=== PATIENT | female | born 1960 | race Caucasian/White ===

== ENCOUNTER 2020-01-22 16:21 | Inpatient (IN) | payer BC, OTHER ==
[2020-01-22 17:47] VITALS: BMI 22.2
[2020-01-22] MEDS ORDERED: Acetaminophen 325 MG TAB PO PRN (19:13)
[2020-01-22] MEDS ORDERED: Acetaminophen 650 MG Suppository PR PRN (19:13)
[2020-01-22] MEDS ORDERED: Chloraseptic Spray 180 ml Bottle PO PRN (19:45)
[2020-01-22] MEDS: D5 1/2 NS w/20 mEq KCL 1,000 ML IV SCH (20:07)
[2020-01-22] MEDS: Pantoprazole 40 MG VIAL IVP SCH (20:11)
--- NOTE | 2020-01-22 22:33 | HP ---
CHIEF COMPLAINT: Nausea and vomiting. HISTORY OF PRESENT ILLNESS: Ms. Gutierrez is a 59-year-old woman with a past history of endometrial cancer treated with surgery, radiation, and chemotherapy. The radiation therapy resulted in a colon stricture and she underwent a colectomy and colostomy with later takedown and reanastomosis and diverting ileostomy. Her ileostomy was taken down last year. She reported rather acute onset of overall malaise, had tightness in her abdomen and nausea. She had multiple episodes of vomiting and even after she emptied her stomach, she continued to vomit bile. She came to a local emergency room as her symptoms were not abating and a CT there showed a high-grade mechanical small bowel obstruction. She had an NG tube placed and received medication and is now feeling much better. She is no longer having any nausea and she denies any abdominal pain. She states that she never really had severe abdominal pain. She just felt discomfort and tightness in her abdomen. She has had some problems with intermittent discomfort and tightness, which has resolved over time and she has had some chronic constipation, which she treats with psyllium and stool softeners ever since her ileostomy reversal. She is otherwise healthy and very active. PAST MEDICAL HISTORY: Endometrial cancer and radiation-induced stricture of the colon. The patient also has a history of DVT in her left leg associated with the acute illness caused by the sigmoid stricture and obstruction. FAMILY HISTORY: Pancreatic cancer in her mother. 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 She does not smoke, drink, or use illicit drugs. OUTPATIENT MEDICATIONS: She takes baby aspirin twice a day due to her history of DVT. ALLERGIES: PENICILLIN CAUSES HIVES. PHYSICAL EXAMINATION: VITAL SIGNS: Temperature 98.4, heart rate 76, respirations 18, 98% saturated on room air, and blood pressure 122/69. GENERAL: Reveals a healthy-appearing woman, in no acute distress. She is not jaundiced or icteric. She is not flushed or toxic in appearance. HEENT: Unremarkable. NECK: Supple without lymphadenopathy or thyroid nodules. HEART: Regular in its rate and rhythm. She does have a soft systolic murmur heard best at the left upper sternal border, which she states has been present since she was a baby. No rubs or gallops. LUNGS: Clear to auscultation bilaterally with good air movement. ABDOMEN: Soft, nondistended, and nontender. Bowel sounds are diminished, slightly tympanitic in the upper abdomen. No palpable masses or hernias. EXTREMITIES: Warm and well perfused with very minimal edema in the left ankle. NEUROLOGIC: No focal deficits. PSYCHIATRIC: Alert, oriented, and appropriate. LABORATORY DATA: Labs from the outside emergency room showed a normal white count, hematocrit, and platelets. Electrolytes were unremarkable as were LFTs. The CT report showed a liver lesion consistent with hemangioma, which the patient confirms that she has been diagnosed with as well as a high-grade mechanical small bowel obstruction. The written report does not specify where this is, but the ER doctor reported that it was near the level of her previous ileostomy. ASSESSMENT: Small bowel obstruction, symptomatically improved. The patient is no longer nauseated and is not reporting any pain or discomfort, although she has not reportedly passed flatus since yesterday. She has an NG tube in place, which has light green output of about 100 mL since she arrived. Since she is not symptomatic, we will continue with conservative management with NG decompression and bowel rest. If she continues to improve, a small-bowel follow-through will be obtained. She has contacted her colorectal surgeon in [place] and they would prefer for her to be transferred there if she require surgery but hopefully this will resolve with conservative management. Due to the patient's history of deep venous thrombosis, I have placed her on SCDs and Lovenox. Job ID: [id number]
[2020-01-23] MEDS: Ketorolac Tromethamine 30 MG/ML VIAL IVP PRN ×4 (03:33→22:46)
[2020-01-23] MEDS: D5 1/2 NS w/20 mEq KCL 1,000 ML IV SCH ×3 (03:34→20:14)
[2020-01-23 05:54] LABS: #Lymphocytes 0.8 thou/uL (1.20-3.40); #Monocytes 0.4 thou/uL (0.11-0.59); %Basophils 0.3 % (0.0-1.0); %Eosinophils 1.3 % (0.0-10.0); %Lymphocytes 24.4 % (21.0-51.0); %Neutrophils 61.9 % (42.0-75.0); Hemoglobin 9.9 g/dL (12.0-16.0); Mean Corpuscular HGB CONC 33.6 g/dL (32.0-36.0); Mean Corpuscular Hemoglobin 30.1 pg (27.0-31.0); Mean Corpuscular Volume 89.8 fL (78.0-98.0); Mean Platelet Volume 9.2 fL (7.4-10.4); Platelet Count 152 thou/uL (130-400); RBC Distribution Width 14.2 % (11.5-14.5); Red Blood Cell (RBC) Count 3.28 mill/uL (4.20-5.40); White Blood Cell (WBC) Count 3.2 thou/uL (4.8-10.8)
[2020-01-23 06:11] LABS: Anion Gap 11 mmol/L (10-20); BUN (Urea Nitrogen) 17 mg/dL (9.8-20.1); Calc. Creatinine Clearance 73 mL/min (70-130); Calcium 8.7 mg/dL (7.8-10.44); Carbon Dioxide 25 mmol/L (22-29); Chloride 110 mmol/L (98-107); Estimated GFR-MDRD 88; Glucose 122 mg/dL (70-105); Potassium 3.8 mmol/L (3.5-5.1); Sodium 142 mmol/L (136-145)
[2020-01-23] MEDS: Pantoprazole 40 MG VIAL IVP SCH ×2 (08:35→20:17)
[2020-01-23] MEDS: Enoxaparin Sodium 40 MG/0.4 ML SYRINGE SC SCH (08:35)
[2020-01-23] MEDS ORDERED: Simethicone Chewable 80 MG TAB PO PRN (10:26)
[2020-01-23] MEDS: Ondansetron PF 4 MG/2 ML Vial IVP PRN ×2 (10:32→20:17)
[2020-01-23] MEDS: Cepastat Lozenges 1 LOZ PO PRN ×2 (14:00→22:47)
--- NOTE | 2020-01-23 15:18 | PDOC.GSPN ---
Surgery Progress Note: Subj - Subjective Narrative: Still having occasional discomfort and nausea. She is unsure whether she has passed gas today but thinks it was a small amount. She is ambulating frequently. NG output is pale green. Labs and vital signs are normal and her abdomen is nontender to palpation. Bowel sounds are still diminished. Assessment/plan: Small bowel obstruction, persistent but minimally symptomatic. We will continue with conservative management with bowel rest and NG decompression. Plain film ordered for tomorrow morning. Will likely get small bowel follow-through with Gastrografin tomorrow as well. Surgery Progress Note: Obj - Vital signs Vital signs: Vital Signs - Most Recent Temp Pulse Resp BP Pulse Ox 98.8 F 74 16 118/78 97 01/23/20 11:35 01/23/20 11:35 01/23/20 11:35 01/23/20 11:35 01/23/20 11:35 Surgery Progress Note: Results - Labs Result Diagrams: 01/23/20 05:30 01/23/20 05:30 Lab results: Laboratory Results - last 24 hr 01/23/20 01/23/20 05:30 05:30 WBC 3.2 L RBC 3.28 L Hgb 9.9 L Hct 29.5 L MCV 89.8 MCH 30.1 MCHC 33.6 RDW 14.2 Plt Count 152 MPV 9.2 Neutrophils % 61.9 Lymphocytes % 24.4 Monocytes % 12.0 H Eosinophils % 1.3 Basophils % 0.3 Neutrophils # 2.0 Lymphocytes # 0.8 L Monocytes # 0.4 Eosinophils # 0.0 Basophils # 0.0 Sodium 142 Potassium 3.8 Chloride 110 H Carbon Dioxide 25 Anion Gap 11 BUN 17 Creatinine 0.69 Estimated GFR (MDRD) 88 Glucose 122 H Calcium 8.7
[2020-01-24] MEDS: Ondansetron PF 4 MG/2 ML Vial IVP PRN ×3 (03:26→14:39)
[2020-01-24] MEDS: Cepastat Lozenges 1 LOZ PO PRN ×3 (03:27→11:04)
[2020-01-24] MEDS: Ketorolac Tromethamine 30 MG/ML VIAL IVP PRN ×2 (04:45→11:40)
[2020-01-24] MEDS: D5 1/2 NS w/20 mEq KCL 1,000 ML IV SCH ×4 (04:46→14:39)
[2020-01-24] MEDS: Enoxaparin Sodium 40 MG/0.4 ML SYRINGE SC SCH (08:46)
[2020-01-24] MEDS: Pantoprazole 40 MG VIAL IVP SCH (08:46)
--- NOTE | 2020-01-24 10:23 | RAD ---
2 VIEWS ABDOMEN: Date: 01/24/2020 HISTORY: Small bowel obstruction. FINDINGS: There is a nasogastric tube curling in the left upper quadrant. There is an air fluid level in the st omach. There is a paucity of bowel gas noted within the abdomen/pelvis. There are a few dilated gas-f illed loops of small bowel within the mid left abdomen/left upper quadrant with air fluid levels on u pright imaging. There is prominent/dense stool overlying the lateral aspect of the right mid abdomen. IMPRESSION: Findings consistent with small bowel obstruction as detailed above. Follow-up imaging advised. POS: MARIA LUISA
[2020-01-24 12:18] VITALS: BP 138/82; TEMP 98.5
[2020-01-24] MEDS ORDERED: diphenhydrAMINE 50 MG/ML VIAL IVP PRN (12:58)
--- NOTE | 2020-01-24 18:42 | DIS ---
DATE OF ADMISSION: 01/22/2020 DATE OF DISCHARGE: 01/24/2020 FINAL DIAGNOSES: 1. Small-bowel obstruction. 2. History of endometrial cancer. 3. History of sigmoid stricture related to radiation from endometrial cancer. HISTORY: Ms. Gutierrez is a 59-year-old woman who was admitted on 01/22/2020, with signs and symptoms of small-bowel obstruction. She was seen at a local free-standing emergency room where CT also showed evidence of a high-grade mechanical bowel obstruction presumably due to previous surgery. She had immediate relief of her symptoms with placement of an NG tube and administration of Toradol and she was admitted for a trial of conservative management with bowel decompression. She continued to have intermittent bouts of abdominal discomfort relieved by Toradol and light bilious drainage from her NG tube. She had one small episode of flatus on Saturday and one on Saturday. Repeat imaging of the abdomen on Saturday showed dilated loops of small intestine with air-fluid levels and a paucity of gas in the colon consistent with persistent bowel obstruction. Since the patient's symptoms had not really improved with bowel rest and I was concerned about potentially exacerbating her symptoms by administering oral contrast, I contacted her colorectal surgeon in [place], who requested transfer for likely surgical intervention. This was arranged through the transfer center in accordance with the wishes of both the patient and her surgeon. At the time of her discharge, she was hemodynamically stable and her symptoms were managed on IV Toradol and NG decompression. She continued to have mild discomfort with palpation in the upper abdomen, diminished bowel sounds, and mild abdominal distension. Medications at the time of discharge include Lovenox, Protonix, maintenance IV fluids, and p.r.n. Toradol and Zofran. Job ID: [id number]
--- NOTE | 2020-01-26 05:58 | PQF ---
BOBY JULIEN KIMIYE MD [id number] [facility] A- [id number] CLINICAL DOCUMENTATION CLARIFICATION FORM: POST DISCHARGE Addendum to original discharge summary date: ____ Late entry note date: __ DATE:01/26/2020 ATTN: Michael James Please exercise your independent, professional judgment in responding to the clarification form. Clinical indicators are provided on the bottom of this form for your review Please check appropriate box(s): [ ] SBO is a postoperative complication of Ileostomy reversal [ ] SBO is not a postoperative complication of Ileostomy reversal [ ] Other diagnosis [ ] Unable to determine CLINICAL INDICATORS - SIGNS / SYMPTOMS / LABS H&P p1 01/21 Dr Alaniz She reported acute onset of overall malaise , had tightness on her abdomen and nausea H&P p1 01/21 Dr Alaniz She came with local ER as her symptoms were not abating and CT there showed high grade mechanical small bowel obstruction H&P p1 01/21 Dr Alaniz has started chronic constipation, since her ileostomy reversal Abdominal Xray 01/23 Findings consistent with SBO Discharge summary p1 01/23 High grade mechanical bowel obstruction [preseumbly due to previous surgery RISK FACTORS H&P p1 01/21 Hx Endometrial Cancer H&P p1 01/21 s/p Ileostomy reversal H&P p1 01/21 Hx of colon stricture s/p Colectomy H&P p1 01/21 Chronic Constipation TREATMENT: MAR 01/21 IV Toradol 15mg MAR 01/21 IV Protonix 40mg Abdomen X-ray 01/23 NG tube decompression placement 01/21 (This form is maintained as a part of the permanent medical record) 2014 [employer] All Rights Reserved [email or web address]
== END 2020-01-24 14:44 | disposition short-term general hospital (02) | DRG 390 ==
LOC: SURG A 17:15
PROVIDERS: ADMIT Surgery; ATTEND Surgery
DX: K56.609 Unspecified intestinal obstruction, unspecified as to partial versus complete obstruction (principal); Z85.42 Personal history of malignant neoplasm of other parts of uterus; Z92.21 Personal history of antineoplastic chemotherapy; Z92.3 Personal history of irradiation; Z88.0 Allergy status to penicillin; Z86.718 Personal history of other venous thrombosis and embolism
CPT/HCPCS: 36415; 74019; 80048; 85025; C9113; J1200; J1650; J1885; J2405; J3480

== ENCOUNTER 2022-09-10 17:53 | Inpatient (IN) | payer BC ==
[2022-09-10] MEDS ORDERED: Promethazine HCl 25 MG/ML VIAL IM PRN (21:49)
[2022-09-10] MEDS: Ondansetron PF 4 MG/2 ML Vial IVP PRN (21:59)
[2022-09-10] MEDS: Morphine 4 MG/ML VIAL SLOW IVP PRN (21:59)
[2022-09-10] MEDS: D5 1/2 NS w/20 mEq KCL 1,000 ML IV SCH (22:01)
[2022-09-11 00:46] VITALS: BMI 24.6
[2022-09-11] MEDS: Morphine 4 MG/ML VIAL SLOW IVP PRN ×3 (00:46→11:25)
[2022-09-11] MEDS: Ondansetron PF 4 MG/2 ML Vial IVP PRN ×3 (01:39→11:25)
[2022-09-11] MEDS: D5 1/2 NS w/20 mEq KCL 1,000 ML IV SCH ×2 (04:14→18:31)
[2022-09-11 06:09] LABS: #Lymphocytes 0.6 thou/uL (1.20-3.40); #Monocytes 0.3 thou/uL (0.11-0.59); #Neutrophils 3.3 thou/uL (1.40-6.50); %Basophils 0.3 % (0.0-1.0); %Eosinophils 0.2 % (0.0-10.0); %Lymphocytes 14.3 % (21.0-51.0); %Neutrophils 77.2 % (42.0-75.0); Hemoglobin 10.5 g/dL (12.0-16.0); Mean Corpuscular HGB CONC 32.4 g/dL (32.0-36.0); Mean Corpuscular Hemoglobin 31.9 pg (27.0-31.0); Mean Corpuscular Volume 98.5 fl (78.0-98.0); Mean Platelet Volume 9.1 fL (7.4-10.4); Platelet Count 154 10x3/uL (130-400); RBC Distribution Width 12.1 % (11.5-14.5); Red Blood Cell (RBC) Count 3.29 mill/uL (4.20-5.40); White Blood Cell (WBC) Count 4.3 10x3/uL (4.8-10.8)
[2022-09-11 06:28] LABS: Anion Gap 10 mmol/L (10-20); BUN (Urea Nitrogen) 15 mg/dL (9.8-20.1); Calc. Creatinine Clearance 88 mL/min (70-130); Calcium 8.4 mg/dL (7.8-10.44); Carbon Dioxide 24 mmol/L (22-29); Chloride 108 mmol/L (98-107); Estimated GFR 103; Glucose 138 mg/dL (70-105); Potassium 3.9 mmol/L (3.5-5.1); Sodium 138 mmol/L (136-145)
[2022-09-11] MEDS ORDERED: MD-Gastroview 120 ML BOT ONE (11:32)
[2022-09-11] MEDS ORDERED: Morphine 4 MG/ML VIAL SLOW IVP PRN (14:07)
[2022-09-11 18:55] VITALS: BP 123/82; TEMP 96.9
== END 2022-09-11 19:45 | disposition short-term general hospital (02) | DRG 390 ==
LOC: SURG B 17:53
PROVIDERS: ADMIT Surgery; ATTEND Surgery
PROC: 0D9670Z Drainage of Stomach with Drainage Device, Via Natural or Artificial Opening (ICD-10-PCS; principal; 2022-09-10)
DX: K56.609 Unspecified intestinal obstruction, unspecified as to partial versus complete obstruction (principal); Z20.822 Contact with and (suspected) exposure to COVID-19; Z85.89 Personal history of malignant neoplasm of other organs and systems; Z88.0 Allergy status to penicillin
CPT/HCPCS: 36415; 74018; 74250; 80048; 85025; J2270; J2405; J3480; Q9963